=== PATIENT | female | born 1985 | race African-American/Black ===

== ENCOUNTER 2019-12-14 11:14 | Inpatient (IN) | payer OTHER ==
[2019-12-14] VITALS (11 sets, daily range): BP systolic 106–147; BP diastolic 57–100
[~2019-12-14] VITALS: Ht 157.5 cm; Wt 88.7 kg
[2019-12-14] MEDS ORDERED: ACET-683 PO (11:37)
[2019-12-14] MEDS ORDERED: PRENTAB9 PO (11:37)
[2019-12-14 12:22] LABS: HEMATOCRIT 37.1 % (36.0-47.0); HEMOGLOBIN 12.1 g/dl (12.0-15.5); MEAN CORPUSCULAR HEMOGLOBIN 25.2 pg (27.0-33.0); MEAN CORPUSCULAR HGB CONC 32.6 g/dl (32.0-36.5); MEAN CORPUSCULAR VOLUME 77.1 fl (80.0-96.0); PLATELET COUNT, AUTOMATED 256 10^3/uL (150-450); RED BLOOD COUNT 4.81 10^6/uL (4.00-5.40); WHITE BLOOD COUNT 6.1 10^3/uL (4.0-10.0)
[2019-12-14] MEDS ORDERED: LACTATED RINGER'S 1000 ML IV STA (12:54)
[2019-12-14] MEDS: miSOPROStol 50 MCG 1/2 TAB (S0191) SL SCH (13:48)
--- NOTE | 2019-12-14 13:52 | HPEPDOC ---
Obstetrical History & Physical General Date of Admission Dec 14, 2019 at 11:14 History of Present Illness Mehnaz is a 34yo at 39+1wks gestation, EDC [id number] by LMP, c/w 1st trimester US, who presents to D for election induction. She endorses excellent movement, denies LOF/VB/CTX. Her supportive partner is here at the bedside; she has no concerns at this time. Her is complicated by obesity (BMI 32); 3hr GTT WNL. Varicella is NI Blood Type O Positive GBS Negative OB Hx: 1x 07/2017 at 39+wks, pelvis tested to 6lbs 9oz; 1x SAB 01/2019, uncomplicated Chief Complaint: Induction of labor Information Provided By: Patient Age: 34 : 3 Term: 1 Pre-term: 0 Abortions: 1 Livin Care Care: Good Care Number of Visits: 8 Dating Final EDC: Dec 20, 2019 Final EDC for Daily Update: Dec 20, 2019 Final EDC by: LMP Antepartum Course Height (inches): 62 Pre- weight (lbs.): 177 Admission Weight (lbs.): 194 Change in Weight (lbs.): 17 Past Medical History Past Obstetrical History : Past Obstetrical History: Multigravida [employer] History: Spontaneous Past Medical History Surgical History: Denies/None Family History Significant Family History: No pertinent family hx Social History Marital Status: Family situation: Spouse/partner home Psychosocial History: No pertinent psych hx * Smoker: non-smoker Alcohol: Denies Drugs: denies Imunizations Tdap status: current Influenza Status: current Allergies Coded Allergies: No Known Allergies (Unverified , 12/14/19) Medications Scheduled No.137/Iron/Folic Acd ( Vitamin Tablet) 1 Each Tablet, 1 TAB PO DAILY Scheduled PRN Acetaminophen (Acetaminophen) 500 Mg Tablet, 1 TAB PO Q6HP PRN for DISCOMFORT Physical Examination Physical Examination GENERAL: Alert and oriented times three. ABDOMEN: Gravid and non-tender to touch. FETUS: Is vertex (VTX) by TAUS. HEART RATE: Regular rate. LUNGS: Observed nonlabored breathing. EXTREMITIES: mild pedal edema bilaterally. Vital Signs/I&O O: VSS, afebrile, BP normotensive FHR 140s, moderate variability, + accels, no decels noted CTX by TOCO, occasional and very mild VE: 1/L/H, posterior Vital Signs Date Time Temp Pulse Resp B/P (MAP) Pulse Ox O2 Delivery O2 Flow Rate FiO2 12/14/19 11:32 98.3 114 20 115/67 (83) 99 Room Air Laboratory Data 24H LABS Laboratory Tests 2 12/14/19 11:30: Serology Scanned Report Hepatitis B Testing 12/14/19 12:00: Nucleated Red Blood Cells % (auto) 0.0, Syphilis Serology NONREACTIVE CBC/BMP Laboratory Tests 12/14/19 12:00 Pertinent Laboratoy Data Blood Type: O+ RBC Antibody Screen: Negative HIV: Negative Hepatitis B: Negative Rapid Plasma Reagin: Nonreactive Rubella: Immune Varicella: Nonreactive Chlamydia/Gonorrhea: Negative Group B Streptococcus: Negative Quad Screen Test: Negative Anatomy Ultrasound Ultrasound Date: Aug 01, 2019 Placenta Location: Posterior Normal Anatomy: Yes Placenta Previa: No Other Ultrasounds [id number]: Growth - 45th%tile Assessment/Plan Assessment A: Mehnaz is a 34yo at 39+1wks being admitted for elective IOL; category I FHT. GBS Negative, blood type O Positive, Varicella NI. Plan P: Admit to LND and consent for induction methods, labor, and delivery. PIV start, admission labs drawn PO and IV hydration Start IOL with PO cytotec 50mcg with plan to place CRB when cervix more favorable CEFM x2 for 1 hour after cytotec administration, then intermittent with Category I FHT Monitor maternal/ status Consult with OB as indicated Anticipate PEG CHEW CNM Dec 14, 2019 13:52
[2019-12-14] MEDS ORDERED: miSOPROStol 50 MCG 1/2 TAB (S0191) PO ONE (19:00)
[2019-12-14] MEDS ORDERED: LR 1,000 ML IV SCH (19:00)
--- NOTE | 2019-12-14 19:06 | IPN ---
DATE OF SERVICE: 12/14/2019 at 1847 hours This lady is a 34-year-old 3, para 1 at 39 and 1 weeks of gestation, was booked for elective induction of labor. She had no issues. She had been given misoprostol 50 mg times one and is electively booked to have another one in 4 hours time. On examination presently, the cervix is still posterior, thick, 1 cm and -3 station. The contraction pattern is irregular, baseline is low 120s. There are some areas of acceleration. Her blood pressure is 116/57, respirations 20, pulse is 90, and temperature is 98.2. Our plan of management is to have her eat supper and give her 50 mcg of misoprostol by mouth and reassessment in 4 hours time. Safe to proceed.
[2019-12-15] MEDS ORDERED: diphenhydrAMINE 25MG CAP PO ONE (00:15)
[2019-12-15 00:18] VITALS: BP 111/63
[2019-12-15] MEDS: miSOPROStol 50 MCG 1/2 TAB (S0191) SL SCH (00:18)
[2019-12-15 01:18] VITALS: BP 106/59
[2019-12-15 02:18] VITALS: BP 111/68
[2019-12-15 03:18] VITALS: BP 102/61
[2019-12-15 04:42] VITALS: BP 111/57
[2019-12-15 06:16] VITALS: BP 114/72
--- NOTE | 2019-12-15 08:38 | IPN ---
DATE: 12/15/2019 34-year-old, 3, para 1, admitted 39 and 1 weeks of gestation for induction of labor. Her past history is that she had a spontaneous vaginal delivery at 39 weeks of a live 6 pounds 9 ounces, and she was initially started on misoprostol, followed up by a second dose, followed up by a third dose at midnight. She had contractions, which irregular 2-4 minutes, were not bothersome to her. This morning there is basically no change in her cervix. Her contractions are very mild. Our plan of management is to have her eat breakfast, shower and repeat the Cytotec 50 by mouth as her cervix is not favorable for a Butler bulb or a Pitocin augmentation. The patient expressed understanding of the plan of care.
--- NOTE | 2019-12-15 10:23 | REP ---
Obstetric sonography: Limited. History: Biophysical profile . 39 weeks gestation. Findings: Limited obstetric sonography demonstrates a single living intrauterine gestation in a cephalic lie. A posterior fundal placenta is seen grade 1 without evidence of previa or abruption. Amniotic fluid is subjectively normal. LINA is normal and 8.7 cm. heart rate is recorded at 133 beats per minute. Biophysical profile score is eight out of a possible eight. SD ratio in the umbilical cord artery by Doppler is normal at 2.37. Electronically Signed by Henrry Schmidt MD 12/15/2019 10:14 A
== END 2019-12-15 10:10 | disposition home or self-care (01) | DRG 833 ==
LOC: M LDI 11:14
PROVIDERS: ADMIT Registered Nurse Maternal Newborn; ATTEND Registered Nurse Maternal Newborn
PROC: 3E0DXGC Introduction of Other Therapeutic Substance into Mouth and Pharynx, External Approach (ICD-10-PCS; principal; 2019-12-14)
DX: O61.0 Failed medical induction of labor (principal); Z3A.39 39 weeks gestation of pregnancy; E66.9 Obesity, unspecified; Z68.32 Body mass index [BMI] 32.0-32.9, adult; O99.213 Obesity complicating pregnancy, third trimester

== ENCOUNTER 2019-12-23 11:47 | Inpatient (IN) | payer OTHER ==
[~2019-12-23] VITALS: Ht 157.5 cm; Wt 89.9 kg
[2019-12-23] VITALS (20 sets, daily range): BP systolic 91–124; BP diastolic 49–77
[~2019-12-23 11:47] MED LIST: ACET-683 PO; PRENTAB9 PO
[2019-12-23 12:52] LABS: HEMATOCRIT 37.2 % (36.0-47.0); MEAN CORPUSCULAR HEMOGLOBIN 24.6 pg (27.0-33.0); MEAN CORPUSCULAR HGB CONC 32.3 g/dl (32.0-36.5); MEAN CORPUSCULAR VOLUME 76.2 fl (80.0-96.0); PLATELET COUNT, AUTOMATED 258 10^3/uL (150-450); RED BLOOD COUNT 4.88 10^6/uL (4.00-5.40); WHITE BLOOD COUNT 6.4 10^3/uL (4.0-10.0)
[2019-12-23] MEDS ORDERED: LACTATED RINGER'S 1000 ML IV ONE (13:30)
[2019-12-23] MEDS ORDERED: OXYTOCIN DRIP 30 UNITS in IV 1 EA IV SCH (13:45)
--- NOTE | 2019-12-23 14:05 | HPE ---
DATE OF ADMISSION: 12/23/2019 PAST HISTORY: July 2017 at 39 weeks, spontaneous delivery, female, 6 pounds 9 ounces. January 2019, spontaneous . RISK FACTORS: BMI is 32.4. Abnormal GTT. COVID negative. LABS: O+. HIV negative. Hepatitis negative. RPR negative. Rubella immune. Varicella nonimmune. Pap normal. Urine negative. Gonorrhea and chlamydia negative. Initial 1-hour glucose was 179. Her 3-hour GTT was 86 fasting, 177 1-hour, 119 2-hour and 102 3-hour. GBS negative. Her 28-week GTT on a repeat her fasting was 83, 1-hour 161, 2-hour 133, and 3-hour was 99. Hemoglobin 12.0, hematocrit 37.2 and platelets are 258. PHYSICAL EXAM: Blood pressure 109/69, respirations are 18, pulse 116 and temperature 98.6. The rest of the examination unremarkable. Normocephalic, atraumatic. Neck full range of motion. Pupils equal and reactive to light. Category one strip. She has no wheezes or rhonchi. No costovertebral angle (CVA) tenderness. Abdomen: Soft uterus. Four quadrant bowel sounds are noted. Vertex presenting. On digital examination, she is 3 cm, soft, 70% effaced. You can feel bulging membranes, -3 station. She has no rashes, lesions or pruritus. No arthralgia or myalgia. No complaint of joint pain. No complaint of cough, wheeze, shortness breath or dyspnea on exertion. No bleeding. Neuro complete. No incontinency or frequency. No nausea, vomiting, diarrhea, or constipation. No heat or cold insensitivities. Diabetic issues as mentioned. She has no abnormal Pap smear. No history of STDs. PAST MEDICAL/SURGICAL HISTORY: Noncontributory. FAMILY HISTORY: Noncontributory, SOCIAL HISTORY: She does not smoke, drink or abuse drugs. She is . No domestic violence and she has a good support system. We discussed vaginal delivery, it is delivery through the vagina, with possible use of forceps or vacuum if needed for maternal or indications. These are instruments that can assist with vaginal delivery when normal pushing efforts cannot achieve delivery on their own or when delivery is needed in an emergency for the baby's well-being. Medications may be used or required to augment or induce labor. In order to achieve vaginal delivery, an episiotomy may be required to help the baby deliver vaginally. You may also require repair of lacerations or tears of the vagina or vulva that are caused by vaginal delivery. In some cases, emergencies arise that require emergency section. The procedure will discussed and the indications are Clinical prior to commencement. section is delivery through the abdomen with an incision and in some cases may be safer for the mother and the baby than continuing labor. Risk of vaginal delivery include, but not limited to bleeding, infection, injury to the vagina, pelvic structures, injury to baby, damage to the uterus, reaction to anesthesia, uterine rupture, risk of hysterectomy for life-threatening bleeding issues. Medications used to induce or augment labor may cause , hysterectomy, hemorrhage and heart rate abnormalities requiring emergency section. There is also increased risk of perineal or vaginal lacerations, risk of urinary or bowel incontinence. Risk of use of forceps or vacuums include scratches, hematomas on the head and intracranial bleed. After discussing and 40-minute question period, all questions answered. Our plan of management is to IV bolus and the patient to use a Cook catheter with Pitocin.
[2019-12-23] MEDS: LR 1,000 ML IV SCH ×2 (18:30→20:36)
[2019-12-23] MEDS ORDERED: PROMETHAZINE INJ 25 MG/ML VIAL (J2550) IV ONE (20:30)
[2019-12-23] MEDS ORDERED: BUTORPHANOL 2 MG/ML INJ (J0595) IV ONE (20:30)
[2019-12-23] MEDS ORDERED: OXYTOCIN INJ 10 UNITS/ML VIAL (J2590) IV ONE (23:10)
[2019-12-23 23:17] LABS: CORD GAS ABE A -2.4; CORD GAS ABE V -3.8; CORD GAS HCO3 A 23.7 MEQ/L; CORD GAS HCO3 V 20.7 MEQ/L; CORD GAS O2 SAT V 63.2 %; CORD GAS PCO2 A 45.5 mmHg; CORD GAS PCO2 V 36.5 mmHg; CORD GAS PH A 7.335 UNITS; CORD GAS PH V 7.372 UNITS; CORD GAS PO2 A 20.1 mmHg; CORD GAS PO2 V 26.7 mmHg; CORD GAS SBC A 21.3 MEQ/L; CORD GAS SBC V 20.5 MEQ/L; CORD GAS TCO2 A 25.1 MEQ/L; CORD GAS TCO2 V 21.8 MEQ/L
[2019-12-23] MEDS: OXYTOCIN DRIP 30 UNITS in IV 1 EA IV SCH (23:26)
[2019-12-23] MEDS ORDERED: ACETAMINOPHEN TAB 650MG DOSE (2X325MG) PO PRN (23:30)
[2019-12-23] MEDS ORDERED: DOCUSATE SODIUM 100 MG CAP PO PRN (23:30)
[2019-12-23] MEDS ORDERED: MEASLES,MUMPS,RUBELLA VACCINE INJ (MMR-II) (90707) SC SCH (23:30)
[2019-12-23] MEDS ORDERED: ANUSOL HC CREAM 30GM TOP PRN (23:30)
[2019-12-23] MEDS ORDERED: METHYLERGONOVINE MALEATE 0.2 MG TAB PO PRN (23:30)
[2019-12-23] MEDS ORDERED: DIBUCAINE 1% OINTMENT 30GM TOP PRN (23:30)
[2019-12-23] MEDS ORDERED: IBUPROFEN 600 MG TAB PO PRN (23:30)
[2019-12-23] MEDS ORDERED: MOM 30ML SUSPENSION UDC PO PRN (23:30)
[2019-12-23] MEDS ORDERED: RHOGAM 300 MCG (1500 IU) INJ (J2790) IM SCH (23:30)
[2019-12-23] MEDS: IBUPROFEN 800 MG TAB PO PRN (23:44)
[2019-12-24 00:11] VITALS: BP 117/67
[2019-12-24 00:25] VITALS: BP 131/59
[2019-12-24 01:42] VITALS: BP 127/75
[2019-12-24] MEDS: OXYTOCIN DRIP 30 UNITS in IV 1 EA IV SCH (03:01)
[2019-12-24] MEDS: ACETAMINOPHEN 500 MG TAB PO PRN ×2 (03:37→23:08)
[2019-12-24 06:00] VITALS: BP 120/66
[2019-12-24 07:36] LABS: HEMOGLOBIN 11.7 g/dl (12.0-15.5); MEAN CORPUSCULAR HEMOGLOBIN 25.1 pg (27.0-33.0); MEAN CORPUSCULAR HGB CONC 32.5 g/dl (32.0-36.5); MEAN CORPUSCULAR VOLUME 77.3 fl (80.0-96.0); PLATELET COUNT, AUTOMATED 240 10^3/uL (150-450); RED BLOOD COUNT 4.66 10^6/uL (4.00-5.40); WHITE BLOOD COUNT 10.3 10^3/uL (4.0-10.0)
[2019-12-24] MEDS: PRENATAL VITAMINS CHEWABLE TABLET PO SCH (08:40)
[2019-12-24] MEDS: IBUPROFEN 800 MG TAB PO PRN (10:29)
--- NOTE | 2019-12-24 14:32 | IPN ---
DATE OF SERVICE: 12/24/2019 day #1. A 34-year-old 3, now para 2, who was admitted for induction of labor at 40 and 3 weeks of gestation. She had a precipitous spontaneous vaginal if a livebirth male , 7 pounds 8 ounces, 3400 grams, scores of 9 and 9 at 1 and 5 minutes, respectfully. On her first day, we discussed phlebitis, cystitis, mastitis, endometritis, and cellulitis, diet, exercise, pain management, perineal, breast, and wound care. Her blood pressure this morning is 120/66, respirations are 17, pulse is 83, and temperature is 98.4, and she is presently breast-feeding. She has voided. She is passing gas, mobilizing. Her admitting hemoglobin was 12.0, hematocrit 37.2, and platelets are 258, day #1 hemoglobin is pending. Plans of care are to circumcise this baby after pediatrics has seen, after neonatology has seen the , and plans for discharge for tomorrow morning.
--- NOTE | 2019-12-24 14:34 | IPN ---
DATE: 12/24/2019 This patient requested circumcision of her male . After discussing risks, benefits of circumcision, the medical and nonmedical indications, the penile block and aftercare expressed understanding of penile block and aftercare, signed the consent form. All questions were answered. 20-minute discussion. We await the clearance by the certified breastfeeding educator.
--- NOTE | 2019-12-24 14:40 | DN ---
DATE: 12/23/2019 DELIVERY NOTE: This lady is a 34-year-old, 3, para 1, admitted for induction of labor at 40 and 3 weeks of gestation. She was induced with a Butler bulb with Pitocin. She had IV meds for pain management. Precipitously delivered a live male 7 pounds 8 ounces (3400 grams). Terminal meconium and voiding were noted. score of 9 and 9 at one and five minutes, respectfully. The compound presentation with the right hand and head at the same time. Arterial pH 7.33, base excess -2.4. Venous pH 7.37, base excess -3.8. She had a small fourchette tear oversewn with #2-0 Vicryl on a J339. Anterior, posterior and lateral berry were complete. Cervix was complete. Placenta was complete. Three-vessel membranes and tissues intact. The uterus contracted well under Pitocin. The patient and baby tolerating procedure well.
[2019-12-24 17:57] VITALS: BP 121/71
[2019-12-25] MEDS: IBUPROFEN 800 MG TAB PO PRN (05:43)
[2019-12-25 06:11] VITALS: BP 122/76
[2019-12-25] MEDS: PRENATAL VITAMINS CHEWABLE TABLET PO SCH (08:11)
--- NOTE | 2019-12-25 08:47 | IPNPDOC ---
Progress Note Date of Service: Dec 25, 2019 Day#: 2 Progress Note PPD 2 SUBJECT: Mehnaz is a 34yo [id number] s/p uncomplicated at term after IOL for LTG, doing well on PPD2. She has been ambulating, voiding spontaneously without issue and tolerating regular diet. Breast and bottle feeding without issue. Reports lochia is like a normal period. No f/c/n/v/CP/SOB. OBJECTIVE: VITAL SIGNS: Within normal limits, afebrile. Alert and oriented times three. Abdomen: Fundus firm at U-2. Soft, NTTP. Extremities: no pain with palpation of calves ASSESSMENT: Mehnaz is a 34yo [id number] s/p uncomplicated at term after IOL for LTG, doing well on PPD2. Vitals within normal limits, afebrile, hemodynamically stable with no evidence of infection. PLAN: 1. Discharge to home today. 2. Tylenol and Motrin for pain. 3. Encourage breast feeding and ambulation. 4. Undecided regarding contraception 5. Routine PP visit in 6 weeks in clinic. 6. Discussed return precautions at length. Dr. Geeta Márquez MD VS, I&O, 24H, Fishbone Vital Signs/I&O Vital Signs Date Time Temp Pulse Resp B/P (MAP) Pulse Ox O2 Delivery O2 Flow Rate FiO2 12/25/19 06:11 98.4 86 14 122/76 (91) 12/24/19 17:57 100 Room Air Geeta Márquez MD Dec 25, 2019 08:47
--- NOTE | 2019-12-25 08:51 | DS.PDOC ---
Discharge Summary General Date of Admission Dec 23, 2019 at 11:47 Date of Discharge Dec 25, 2019 Discharge Summary PROCEDURES PERFORMED DURING STAY: spontaneous vaginal delivery ADMITTING DIAGNOSES: 1. IOL for LTG DISCHARGE DIAGNOSES: 1. IOL for LTG, delivered COMPLICATIONS/CHIEF COMPLAINT: Induction. HISTORY OF PRESENT ILLNESS/HOSPITAL COURSE: Mehnaz is a 34yo [id number] s/p uncomplicated at term after IOL for LTG, doing well on PPD2. Benign PP course. Vitals within normal limits, afebrile, hemodynamically stable with no evidence of infection. DISCHARGE MEDICATIONS: Please see below. ALLERGIES: Please see below. PHYSICAL EXAMINATION ON DISCHARGE: VITAL SIGNS: Within normal limits, afebrile. Alert and oriented times three. Abdomen: Fundus firm at U-2. Soft, NTTP. Extremities: no pain with palpation of calves LABORATORY DATA: Please see below. ACTIVITY: vaginal rest and no heavy lifting 6 weeks DIET: regular DISPOSITION: home DISCHARGE PLAN/INSTRUCTIONS: 1. Discharge to home today. 2. Tylenol and Motrin for pain. 3. Encourage breast feeding and ambulation. 4. Undecided regarding contraception 5. Routine PP visit in 6 weeks in clinic. 6. Discussed return precautions at length. DISCHARGE CONDITION: Stable TIME SPENT ON DISCHARGE: Greater than [address] Geeta Márquez MD Vital Signs/I&Os Vital Signs Date Time Temp Pulse Resp B/P (MAP) Pulse Ox O2 Delivery O2 Flow Rate FiO2 12/25/19 06:11 98.4 86 14 122/76 (91) 12/24/19 17:57 100 Room Air Discharge Medications Scheduled No.137/Iron/Folic Acd ( Vitamin Tablet) 1 Each Tablet, 1 TAB PO DAILY, (Reported) Scheduled PRN Acetaminophen (Acetaminophen) 500 Mg Tablet, 1 TAB PO Q6HP PRN for DISCOMFORT, (Reported) Allergies Coded Allergies: No Known Allergies (Unverified , 12/14/19) Geeta Márquez MD Dec 25, 2019 08:51
[2019-12-25] MEDS: ACETAMINOPHEN 500 MG TAB PO PRN (11:00)
== END 2019-12-25 13:00 | disposition home or self-care (01) | DRG 807 ==
LOC: M LDI 11:47 → M OBS 12-24 01:20
PROVIDERS: ADMIT Obstetrics & Gynecology; ATTEND Obstetrics & Gynecology
PROC: 10E0XZZ Delivery of Products of Conception, External Approach (ICD-10-PCS; principal; 2019-12-23)
PROC: 0HQ9XZZ Repair Perineum Skin, External Approach (ICD-10-PCS; 2019-12-23)
PROC: 3E033VJ Introduction of Other Hormone into Peripheral Vein, Percutaneous Approach (ICD-10-PCS; 2019-12-23)
DX: O48.0 Post-term pregnancy (principal); Z37.0 Single live birth; Z3A.40 40 weeks gestation of pregnancy; O62.3 Precipitate labor; O77.0 Labor and delivery complicated by meconium in amniotic fluid; O32.6XX0 Maternal care for compound presentation, not applicable or unspecified; O70.0 First degree perineal laceration during delivery

== ENCOUNTER 2020-09-03 10:42 | Emergency (ER) | payer OTHER ==
[~2020-09-03] VITALS: Ht 157.5 cm; Wt 81.2 kg
[2020-09-03 12:08] LABS: BASO % 0.7 % (0.0-1.0); EOS # 0.2 10^3/uL (0.0-0.5); EOS % 4.4 % (0.0-3.0); HEMATOCRIT 39.1 % (36.0-47.0); LYMPH # 2.1 10^3/uL (1.5-5.0); MEAN CORPUSCULAR HEMOGLOBIN 23.5 pg (27.0-33.0); MEAN CORPUSCULAR HGB CONC 30.7 g/dl (32.0-36.5); MEAN CORPUSCULAR VOLUME 76.7 fl (80.0-96.0); MONO # 0.5 10^3/uL (0.0-0.8); MONO % 11.8 % (0.0-5.0); NEUTROPHILS # 1.5 10^3/uL (1.5-8.5); NEUTROPHILS % 34.9 % (36.0-66.0); PLATELET COUNT, AUTOMATED 274 10^3/uL (150-450); WHITE BLOOD COUNT 4.3 10^3/uL (4.0-10.0)
[2020-09-03 12:51] LABS: BLOOD UREA NITROGEN 8 MG/DL (7-18); CALCIUM LEVEL 9.2 MG/DL (8.5-10.1); CARBON DIOXIDE LEVEL 24 MEQ/L (21-32); CHLORIDE LEVEL 108 MEQ/L (98-107); CREATININE FOR GFR 0.85 MG/DL (0.55-1.30); GLOMERULAR FILTRATION RATE > 60.0 (>60); GLUCOSE, FASTING 97 MG/DL (70-100); HCG, SERUM QUANTITATIVE 5836 MIU/ML; POTASSIUM SERUM 4.1 MEQ/L (3.5-5.1); SODIUM LEVEL 138 MEQ/L (136-145)
--- NOTE | 2020-09-03 13:22 | REP ---
INDICATION: VAGINAL BLEEDING. COMPARISON: None. TECHNIQUE: Transabdominal and transvaginal scanning. FINDINGS: Scanning demonstrates an empty uterus without evidence of intrauterine gestational sac. Uterine dimensions are 10.5 x 5.9 x 7.8 cm. Endometrium is is 1.4 cm in thickness. There is no free fluid visible in the cul-de-sac. No adnexal mass is seen. Right ovarian dimensions are 2.5 x 1.7 x 1.3 cm. Doppler flow is present in the right ovary, resistive index 0.54. Left ovarian dimensions are 3.6 x 1.4 x 3.0 cm. Doppler flow is present in the left ovary, resistive index 0.49. There is a 1.7 x 0.9 x 1.1 cm hypoechoic cyst in the left ovary which may be follicle cyst or corpus luteum. IMPRESSION: Nonspecific sonographic findings. No evidence of intrauterine gestation, adnexal mass, significant cyst, or free cul-de-sac fluid. Clinical and possibly sonographic follow-up suggested. <Electronically signed by Manuel Schmidt > 09/03/20 [id number]
[2020-09-03 14:27] VITALS: BP 122/79
== END 2020-09-03 14:32 | disposition home or self-care (01) ==
LOC: M ED 10:42
DX: O20.0 Threatened abortion (principal); O26.899 Other specified pregnancy related conditions, unspecified trimester; O20.8 Other hemorrhage in early pregnancy; Z32.01 Encounter for pregnancy test, result positive; Z87.59 Personal history of other complications of pregnancy, childbirth and the puerperium; O34.80 Maternal care for other abnormalities of pelvic organs, unspecified trimester

== ENCOUNTER → 2020-09-05 | Outpatient (CLI) | payer OTHER | LOC: M LAB 15:28 | PROVIDERS: ATTEND Physician Assistant | DX: Z32.00 Encounter for pregnancy test, result unknown (principal) ==